=== PATIENT | female | born 1970 | race Caucasian/White ===

== ENCOUNTER 2021-05-25 23:02 | Emergency (ER) | payer OTHER, MEDICAID ==
[~2021-05-25] VITALS: Ht 165.1 cm; Wt 74.8 kg
[2021-05-26 00:18] VITALS: BP_SYST 135
--- NOTE | 2021-05-26 02:00 | NUR ---
ER at bedside examining patient.
--- NOTE | 2021-05-26 03:38 | NUR ---
# 20 gauge angiocath placed to RAC. Use of asceptic technique. Opsite placed over site. Blood return noted. Blood for lab drawn from site. Flushed with 10 cc of normal saline. No evidence of infiltration noted. Patient tolerated well.
[2021-05-26 04:02] LABS: CALCIUM 9.2 mg/dL (8.4-11.0); CREATININE 0.74 mg/dL (0.55-1.30); POTASSIUM 3.4 mmol/L (3.5-5.1)
[2021-05-26 04:03] LABS: BASOPHILS # (AUTO) 0.1 K/uL (0.0-0.2); BASOPHILS % (AUTO) 0.5 % (0.0-2.0); EOSINOPHILS # (AUTO) 0.3 K/uL (0.0-0.4); EOSINOPHILS % (AUTO) 2.5 % (0.0-4.0); HEMATOCRIT 38.7 % (36-48); HEMOGLOBIN 12.6 g/dL (12.0-16.0); LYMPHOCYTES # (AUTO) 3.6 K/uL (1.0-5.5); LYMPHOCYTES % (AUTO) 31.5 % (20.5-51.5); MEAN CORPUSCULAR HEMOGLOBIN 25 pg (27-31); MEAN CORPUSCULAR HGB CONC 33 % (32-36); MEAN CORPUSCULAR VOLUME 76 fL (79.0-98.0); MONOCYTES # (AUTO) 0.8 K/uL (0.0-1.0); MONOCYTES % (AUTO) 7.2 % (1.7-9.3); NEUTROPHILS # (AUTO) 6.7 K/uL (1.8-7.7); NEUTROPHILS % (AUTO) 58.3 % (40.0-70.0); PLATELET COUNT (AUTO) 398 K/uL (130-430); RED BLOOD CELL COUNT(AUTO) 5.08 MIL/uL (4.2-6.2); RED CELL DISTRIBUTION WIDTH 16.2 % (9.0-15.0); WHITE BLOOD COUNT (AUTO) 11.4 K/uL (4.8-10.8)
[2021-05-26 04:08] LABS: TOTAL BILIRUBIN 0.1 mg/dL (0.0-1.0)
--- NOTE | 2021-05-26 04:44 | NUR ---
BACK FROM CT SCAN
[2021-05-26 05:26] LABS: BILIRUBIN,URINE NEGATIVE (NEGATIVE); CLARITY/URINE CLEAR (CLEAR); COLOR,URINE YELLOW (YELLOW); GLUCOSE,URINE NEGATIVE (NEGATIVE); KETONES,URINE NEGATIVE (NEGATIVE); LEUKOCYTE ESTERASE ,URINE NEGATIVE (NEGATIVE); NITRITE, URINE NEGATIVE (NEGATIVE); PH,URINE 5.5 (5.0-8.0); PROTEIN URINE TRACE (NEGATIVE); UROBILINOGEN,URINE 0.2 (0.2-1.0)
[2021-05-26 05:36] LABS: BLOOD, URINE TRACE (NEGATIVE)
[2021-05-26 05:44] LABS: BACTERIA,URINE MODERATE /HPF (None Seen); CALCIUM OXALATE CRYSTALS,UR 0-10 /HPF (None Seen); MUCUS,URINE None Seen /LPF (None Seen)
[2021-05-26 05:51] VITALS: BP_SYST 135
--- NOTE | 2021-05-26 05:54 | NUR ---
Patient given written and verbal discharge instructions and verbalizes understanding. ER MD discussed with patient the results and treatment provided. Patient in stable condition. ID arm band removed. IV catheter removed intact and dressing applied, no active bleeding. Patient educated on pain management and to follow up with PMD. Pain Scale 0/10 Opportunity for questions provided and answered. Medication side effect fact sheet provided.
== END 2021-05-26 05:54 | disposition home or self-care (01) ==
LOC: SED 23:02
DX: R10.31 Right lower quadrant pain (principal)
CPT/HCPCS: 36415; 74177; 76376; 80053; 81000; 83690; 85025; 87086; 99285; Q9967; 99284

== ENCOUNTER 2022-09-25 23:26 | Emergency (ER) | payer OTHER, MEDICAID ==
[~2022-09-25] VITALS: Ht 162.6 cm; Wt 95.3 kg
[~2022-09-25 23:26] MED LIST: LANS30CA53 PO
[2022-09-25 23:34] VITALS: BP_SYST 143
[2022-09-25] MEDS ORDERED: MELA10TA2 PO (23:48)
[2022-09-25 23:54] VITALS: BP_SYST 143
== END 2022-09-25 23:54 | disposition home or self-care (01) ==
LOC: SED 23:26
DX: G47.00 Insomnia, unspecified (principal); Z76.0 Encounter for issue of repeat prescription; Z79.899 Other long term (current) drug therapy
CPT/HCPCS: 99282

== ENCOUNTER 2023-01-10 00:12 | Emergency (ER) | payer OTHER, MEDICAID ==
[~2023-01-10] VITALS: Ht 162.6 cm; Wt 74.8 kg
[~2023-01-10 00:12] MED LIST changes: +MELA10TA2 PO
[2023-01-10 00:18] VITALS: BP_SYST 136; PULSE 96; RESP 18; TEMP 98.1; O2SAT 99
[2023-01-10] MEDS ORDERED: METOCLOPRAMIDE HCL 10 MG TABLET PO ONE (01:15)
[2023-01-10] MEDS ORDERED: DIPHENHYDRAMINE INJ 50 MG/ML VIAL IM ONE (01:15)
[2023-01-10] MEDS ORDERED: MORPHINE 4 MG INJ. 4 MG/ML VIAL IM ONE (01:15)
[2023-01-10] MEDS ORDERED: LIDO1ADH22 TP ×3 (03:48→04:01)
[2023-01-10] MEDS ORDERED: CYCL10TA24 PO ×3 (03:48→04:01)
[2023-01-10] MEDS ORDERED: ACET325T PO ×3 (03:48→04:01)
[2023-01-10] MEDS ORDERED: NAPR-1172 PO (04:00)
[2023-01-10 04:18] VITALS: BP_SYST 130; PULSE 75; RESP 16; TEMP 98.2; O2SAT 99
== END 2023-01-10 04:16 | disposition home or self-care (01) ==
LOC: SED 00:12
DX: S06.0X0A Concussion without loss of consciousness, initial encounter (principal); S16.1XXA Strain of muscle, fascia and tendon at neck level, initial encounter; S40.021A Contusion of right upper arm, initial encounter; Z79.899 Other long term (current) drug therapy; V89.2XXA Person injured in unspecified motor-vehicle accident, traffic, initial encounter; Y93.89 Activity, other specified; Y92.89 Other specified places as the place of occurrence of the external cause; Y99.8 Other external cause status
CPT/HCPCS: 99285; 70450; 71046; 72072; 73020; 72125; 76376; 96372; J8597; J1200; J2270